=== PATIENT | male | born 1940 | race Caucasian/White ===

== ENCOUNTER 2016-03-26 17:25 | Emergency (ER) | payer OTHER ==
[~2016-03-26] VITALS: Ht 172.7 cm; Wt 91.3 kg
[2016-03-26] MEDS ORDERED: CLONAZEPAM0.5 MG PO (18:13)
[2016-03-26] MEDS ORDERED: ZITHROMAX Z-PA250 MG PO (19:32)
[2016-03-26] MEDS ORDERED: MEDROL DOSEPAK4 MG PO (19:32)
[2016-03-26] MEDS ORDERED: VENTOLIN HFA18 GM IH (19:32)
[2016-03-26 19:43] VITALS: BP 143/57
== END 2016-03-26 19:50 | disposition home or self-care (01) ==
LOC: RME 17:25 → EME 17:25 → RME 19:50
DX: J20.9 Acute bronchitis, unspecified (principal); I49.3 Ventricular premature depolarization
CPT/HCPCS: 71020; 93005; 94640; 99281; 99284